=== PATIENT | male | born 1985 | race Hispanic/Latino ===

== ENCOUNTER 2018-07-23 11:03 | Emergency (ER) | payer SELFPAY | END 2018-07-23 12:22 | disposition home or self-care (01) | LOC: ERS 11:03 | DX: D23.5 Other benign neoplasm of skin of trunk (principal) | CPT/HCPCS: 99281 ==

== ENCOUNTER 2021-10-24 09:10 | Emergency (ER) | payer SELFPAY ==
[2021-10-24] MEDS ORDERED: Ondansetron PF 4 MG/2 ML Vial ONE (09:40)
[2021-10-24] MEDS ORDERED: Morphine 4 MG/ML VIAL ONE (09:40)
[2021-10-24] MEDS ORDERED: cefTRIAXone\\ROCEPHIN 500 MG VIAL ONE (11:24)
[2021-10-24] MEDS ORDERED: Ketorolac Tromethamine 30 MG/ML VIAL ONE (11:24)
[2021-10-24] MEDS ORDERED: Lidocaine 1% MPF 2 ML VIAL ONE (11:27)
[2021-10-24 12:02] LABS: Bacteria/HPF 4+ HPF (None Seen); Bilirubin Negative (Negative); Blood, Urine Trace (Negative); Clarity Turbid (Clear); Glucose, Urine (Dipstick) Normal (Negative); Ketone, Urine Negative (Negative); Leukocyte 500 Leu/uL (Negative); Nitrite 2+ (Negative); Protein, Urine (Dipstick) 20 mg/dL (Neg-Trace); Specific Gravity, Urine 1.022 (1.002-1.036); Squamous Epithelial None Seen HPF (0-3); Urobilinogen Normal mg/dL (Less than 2)
[2021-10-24 12:03] LABS: WBC/HPF 21-50 HPF (0-3)
[2021-10-25 13:54] LABS: Chlam.trachomatis by PCR,Urine Not Detected (NotDetected)
== END 2021-10-24 11:50 | disposition home or self-care (01) ==
LOC: ERS 09:10
DX: N45.3 Epididymo-orchitis (principal)
CPT/HCPCS: 76870; 81003; 81015; 87491; 87591; 93976; 96372; 96374; 96375; J0696; J1885; J2270; J2405

== ENCOUNTER 2021-10-27 16:13 | Emergency (ER) | payer SELFPAY ==
[2021-10-27] MEDS ORDERED: Ketorolac Tromethamine 30 MG/ML VIAL ONE (16:40)
[2021-10-27 17:30] LABS: #Eosinphils 0.1 thou/uL (0.0-0.7); #Monocytes 0.7 thou/uL (0.11-0.59); #Neutrophils 4.8 thou/uL (1.40-6.50); %Basophils 0.5 % (0.0-1.0); %Eosinophils 1.1 % (0.0-10.0); %Lymphocytes 15.3 % (21.0-51.0); Hemoglobin 14.1 g/dL (14.0-18.0); Mean Corpuscular HGB CONC 34.7 g/dL (32.0-36.0); Mean Corpuscular Hemoglobin 31.9 pg (27.0-31.0); Mean Platelet Volume 8.2 fL (7.4-10.4); Platelet Count 167 thou/uL (130-400); White Blood Cell (WBC) Count 6.7 thou/uL (4.8-10.8)
[2021-10-27 17:50] LABS: ALT (SGPT) 15 U/L (8-55); AST (SGOT) 18 U/L (5-34); Albumin 3.6 g/dL (3.5-5.0); Alkaline Phosphatase 88 U/L (40-110); Anion Gap 11 mmol/L (10-20); BUN (Urea Nitrogen) 11 mg/dL (8.9-20.6); Bilirubin, Total 0.7 mg/dL (0.2-1.2); Calc. Creatinine Clearance 0 mL/min (70-130); Calcium 8.7 mg/dL (7.8-10.44); Carbon Dioxide 26 mmol/L (22-29); Chloride 101 mmol/L (98-107); Estimated GFR 114; Globulin 3.3 g/dL (2.4-3.5); Glucose 93 mg/dL (70-105); Potassium 3.8 mmol/L (3.5-5.1); Protein, Total 6.9 g/dL (6.0-8.3); Sodium 134 mmol/L (136-145)
[2021-10-27 17:56] LABS: Bacteria/HPF None Seen HPF (None Seen); Bilirubin Negative (Negative); Blood, Urine Negative (Negative); Clarity Clear (Clear); Glucose, Urine (Dipstick) Normal (Negative); Ketone, Urine Negative (Negative); Leukocyte 75 Leu/uL (Negative); Nitrite Negative (Negative); Protein, Urine (Dipstick) Negative (Neg-Trace); RBC/HPF 0-3 HPF (0-3); Specific Gravity, Urine 1.023 (1.002-1.036); Squamous Epithelial None Seen HPF (0-3); Urobilinogen Normal mg/dL (Less than 2)
== END 2021-10-27 18:17 | disposition home or self-care (01) ==
LOC: ERS 16:13
DX: N45.3 Epididymo-orchitis (principal)
CPT/HCPCS: 36415; 76870; 80053; 81003; 81015; 85025; 87086; 93976; 96372; J1885